=== PATIENT | female | born 1955 | race Asian ===

== ENCOUNTER → 2020-09-20 10:51 | Outpatient (CLI) | payer MEDICARE, BC, OTHER, SELFPAY ==
--- NOTE | 2020-09-20 | DI.MRI.S_ITS ---
PROCEDURE: MR KNEE RT WO CON INDICATIONS: Pain in right knee TECHNIQUE: Noncontrast sagittal PD fast spin echo and T2 fast spin echo with fat saturation, sagittal 3-D FLASH with fat saturation; coronal T1 spin echo and PD fast spin echo with fat saturation, and axial PD fast spin echo with fat saturation through the knee. COMPARISON: [facility], CR, XR KNEE 4+ VIEWS RIGHT, 09/12/2020, 8:46. FINDINGS: Image quality: Excellent. Menisci: Medial extrusion of the medial meniscus is present, which demonstrates linear and amorphous high signal intensity within its body, demonstrating superior and inferior articular surface extension, indicating complex tearing. Moderately displaced tear of the posterior horn medial meniscus at the meniscal root ligament insertion site. Lateral meniscus is intact. Cruciate ligaments: The anterior and posterior cruciate ligaments appear intact. Medial structures: The medial collateral ligament appears intact. Visualized portions of the pes anserinus tendons appear normal. No abnormal bursal fluid. Lateral structures: The lateral collateral ligament demonstrates mild T2 signal elevation at the femoral origin. The long and short heads of the biceps femoris tendon appear intact. The popliteus tendon appears normal. Iliotibial band appears normal. Anterior structures: The quadriceps and patellar tendons appear intact. Mild lateral patellar subluxation. No femoral trochlear dysplasia or ventral trochlear prominence. Mild edema in the superolateral aspect of the infrapatellar fat pad. Bones and cartilage: No bone marrow contusions or fractures. There is moderate subchondral degenerative marrow edema within the medial and lateral patellar facets as well as the patellar apex. Mild subchondral degenerative marrow edema within the weight-bearing aspects of the medial tibial plateau. Within the central aspect of the distal femur, there is a well-circumscribed focus of mixed high and low T2 signal intensity measuring roughly 17 mm diameter, consistent with a low-grade cartilaginous lesion such as an enchondroma or low grade chondrosarcoma. There is moderate tricompartmental periarticular osteophyte formation. Severe articular cartilage loss diffusely overlies the weight-bearing aspects of the medial femoral condyle and medial tibial plateau. Mild articular cartilage loss diffusely overlies the weight-bearing aspects of the lateral femoral condyle and lateral tibial plateau. There is moderate diffuse articular cartilage loss overlying the medial patellar facet and patellar apex with superimposed regions of high-grade articular cartilage loss overlying the lateral patellar apex and medial facet. Joint space: There is a moderate knee joint effusion and a moderate Dubon's cyst. Normal appearing synovial plicae are incidentally noted. IMPRESSION: 1. Tricompartmental osteoarthritis with associated articular cartilage loss. 2. Knee joint effusion and Dubon's cyst. 3. Medial meniscal tearing. 4. Findings consistent with lateral patellofemoral friction syndrome in the appropriate clinical setting. 5. Low-grade cartilaginous lesion within the distal femur as described above. Dictated by: Wayne Dodd M.D. on 09/20/2020 at 12:46 Approved by: Wayne Dodd M.D. on 09/20/2020 at 12:50
== END ==
PROVIDERS: PCP Family Medicine; Referring Provider Orthopaedic Surgery; Visit Provider Orthopaedic Surgery
DX: M17.11 Unilateral primary osteoarthritis, right knee (principal); M25.461 Effusion, right knee; S83.241A Other tear of medial meniscus, current injury, right knee, initial encounter
CPT/HCPCS: 73721

== ENCOUNTER → 2022-06-17 11:21 | Outpatient (CLI) | payer MEDICARE, BC, OTHER, SELFPAY ==
--- NOTE | 2022-06-17 | DI.MRI.S_ITS ---
PROCEDURE: MR KNEE LT WO CON INDICATIONS: Other tear of medial meniscus, current injury, left knee, in TECHNIQUE: Noncontrast sagittal PD fast spin echo and T2 fast spin echo with fat saturation, sagittal 3-D FLASH with fat saturation; coronal T1 spin echo and PD fast spin echo with fat saturation, and axial PD fast spin echo with fat saturation through the knee. COMPARISON: CR, KNEE SERIES LT, 04/30/2015, 8:22. [facility], MR, KNEE WITHOUT CONTRAST, 05/10/2015, 8:28. FINDINGS: Image quality: Excellent. Menisci: There is medial and lateral meniscal extrusion. There is complex tear of the body and posterior horn of the medial meniscus. The medial meniscus appears truncated. There is tear of the free edge of the body of the lateral meniscus. The meniscal root ligaments appear intact. Cruciate ligaments: The anterior and posterior cruciate ligaments appear intact. Mild mucoid degeneration of ACL. Medial structures: The medial collateral ligament appears intact. The semimembranosus tendon insertions and meniscocapsular junction appear intact. Visualized portions of the pes anserinus tendons appear normal. No abnormal bursal fluid. Lateral structures: The lateral collateral ligament, long and short heads of the biceps femoris tendon appear intact. The popliteus tendon appears normal. Iliotibial band appears normal. Anterior structures: The quadriceps and patellar tendons appear intact. Patellar alignment is normal. No femoral trochlear dysplasia or ventral trochlear prominence. No edema in the infrapatellar fat pad. Bones and cartilage: No bone marrow contusions or fractures. There is tricompartmental cartilage thinning and fibrillation, most pronounced in the medial femorotibial compartment with near full-thickness cartilage fissures in the medial femoral condyle and medial tibial plateau. There is bone marrow edema in the medial tibial plateau, probably reactive or secondary to mild bone contusion. Joint space: There is small knee joint effusion. Tiny Dubon's cyst. Normal appearing synovial plicae are incidentally noted. There is a 5 mm intra-articular body in the posterior intercondylar notch (series 7, image 17; series 10, image 27). IMPRESSION: 1. Complex tear of the body and posterior horn of the medial meniscus. 2. Tear of the free edge of the body of the lateral meniscus. 3. Tricompartmental cartilage thinning and fibrillation, most pronounced in the medial femorotibial compartment. 4. Small knee joint effusion. 5. A 5 mm intra-articular body in the posterior intercondylar notch. Dictated by: Naheed Hu M.D. on 06/17/2022 at 19:39 Approved by: Naheed Hu M.D. on 06/18/2022 at 10:39
== END ==
PROVIDERS: PCP Family Medicine; Referring Provider Orthopaedic Surgery; Visit Provider Orthopaedic Surgery
DX: S83.232A Complex tear of medial meniscus, current injury, left knee, initial encounter (principal); S83.282A Other tear of lateral meniscus, current injury, left knee, initial encounter; M25.462 Effusion, left knee; X58.XXXA Exposure to other specified factors, initial encounter
CPT/HCPCS: 73721

== ENCOUNTER → 2023-04-22 10:49 | Outpatient (CLI) | payer MEDICARE, BC, OTHER, SELFPAY ==
[2023-04-22 12:41] LABS: Add Manual Diff / Slide Review NO; Basophils Absolute Auto 0 /uL (0-100); Basophils Percent Auto 0.6 % (0-2); Eosinophils Absolute Auto 100 /uL (0-450); Eosinophils Percent Auto 2.3 % (2-4); Hemoglobin 12.3 g/dL (12.0-16.0); Lymphocytes Absolute Auto 1500 /uL (1100-4500); Lymphocytes Percent Auto 23.8 % (25-40); Mean Corpuscular HGB Conc 34.1 % (30-36); Mean Corpuscular Hemoglobin 32.1 PG (26-34); Mean Corpuscular Volume 94.1 fL (80-100); Monocytes Absolute Auto 400 /uL (0-900); Monocytes Percent Auto 5.7 % (3-14); Neutrophils Absolute Auto 4300 /uL (1500-7000); Neutrophils Percent Auto 67.6 % (50-75); Platelet Count 317 X10^3/uL (150-400); Red Blood Cell Count 3.83 X10^6/uL (4.0-5.2); Red Cell Distribution Width 12.8 % (11.6-14.8); White Blood Cell Count 6.4 X10^3/uL (4.5-11.0)
[2023-04-22 12:56] LABS: BUN Creatinine Ratio 11.6 (6-22); Blood Urea Nitrogen 13 mg/dL (7-17); Calcium 8.9 mg/dL (8.4-10.2); Carbon Dioxide 25 mmol/L (22-32); Chloride 103 mmol/L (98-107); Estimated Glomerular Filt Rate 54 mL/min (>60); Glucose 89 mg/dL (80-110); HEMOLYSIS < 15 (0-50); Potassium 4.3 mmol/L (3.4-5.1); Sodium 135 mmol/L (137-145)
== END ==
PROVIDERS: PCP Family Medicine; Referring Provider Orthopaedic Surgery; Visit Provider Orthopaedic Surgery
DX: Z01.818 Encounter for other preprocedural examination (principal); Z01.812 Encounter for preprocedural laboratory examination
CPT/HCPCS: 36415; 80048; 85025; 93005

== ENCOUNTER 2024-06-18 11:32 | Emergency (ER) | payer MEDICARE, BC, OTHER, SELFPAY ==
[2024-06-18] VITALS (7 sets, daily range): BP systolic 141–162; BP diastolic 70–83; PULSE 58–67; RESP 16–18; TEMP 36.9; O2SAT 94–99; BMI 26.6
--- NOTE | 2024-06-18 12:20 | ED.EYEPROB ---
HPI - Eye Problem General Chief complaint: Eye Problems Stated complaint: possible torn retina? left eye Time Seen by Provider: 06/18/24 12:20 Source: patient Mode of arrival: Ambulatory History of Present Illness HPI Narrative: Patient is a 69-year-old female with a history of torn retina to the left eye, presents to the emergency department for possible torn retina. She states that she was told by her eye doctor in the past that if she ever noticed floaters and a bright light to be evaluated immediately in an emergency department. Patient stating that she currently is not having any visual loss or visual disturbances no extraocular pain to I motion, no trauma no falls, she denies any visual loss at this time, does have a history of Lasix approximately 20 years ago, states that she does use glasses at baseline, Related Data Allergies Allergy/AdvReac Type Severity Reaction Status Date / Time [place] Allergy Swelling Verified 06/18/24 11:50 of Lip/Tongue/Throat [place] Allergy Swelling Uncoded 06/18/24 11:50 of Lip/Tongue/Throat Patient History Social History Smoking Status: Former smoker Smoking Status: Former smoker alcohol intake frequency: 0-2 drinks per day Alcohol type: wine Substance Use Type: does not use Exam Initial Vital Signs Initial Vital Signs: Vital Signs Temperature 98.4 F 06/18/24 11:44 Pulse Rate 61 06/18/24 11:44 Respiratory Rate 18 06/18/24 11:44 Blood Pressure 162/80 H 06/18/24 11:44 Pulse Oximetry 99 06/18/24 11:44 Oxygen Delivery Method Room Air 06/18/24 11:44 Course Vital Signs Vital signs: Vital Signs - 8 hr 06/18/24 11:44 06/18/24 11:51 06/18/24 11:52 Temperature 98.4 F Pulse Rate 61 67 Respiratory Rate 18 Blood Pressure 162/80 H 161/74 H Pulse Oximetry 99 96 Oxygen Delivery Method Room Air 06/18/24 11:52 06/18/24 12:00 06/18/24 12:00 Temperature Pulse Rate 67 60 Respiratory Rate Blood Pressure 141/70 H Pulse Oximetry 94 97 Oxygen Delivery Method MDM - Eye Problem Differential Diagnosis Differential diagnosis: Likely other ( Retinal detachment, vitreous hemorrhage) MDM Narrative Medical decision making narrative: patient is a 69-year-old female with a history of retinal tear presenting for possible retinal tear. States that in the past she had a retinal tear repair, was told that if she ever had some floaters that she should be evaluated immediately by a doctor. She states that she did try calling her eye doctor but they were closed since it was the weekend therefore decided come into the ED for further evaluation treatment. She states that 2 hours ago she noticed some floaters denies any actual loss of vision does use glasses at baseline visual acuity. Formed here in the emergency department, without glasses 20/70 in the left eye, right eye uncorrected 20/70. patient did have bedside ultrasound performed by me here to evaluate for retinal detachment there was no evidence of this or any other evidence of vitreous hemorrhage, patient with extraocular eye motions intact no pain with this, patient's vision is at baseline, patient was given strict return precautions she verbalized understanding of this and agrees with being discharged home with outpatient follow up with PCP and Ophthalmology. 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 Disease processes change and evolve, if your symptoms worsen or if you develop any new symptoms that are concerning to you please return for evaluation. Your evaluation today does not show any evidence of any life-threatening/serious illnesses requiring admission to the hospital or surgery. Please follow-up with your doctor for re-evaluation in approximately 1 day. Seek immediate medical attention for any worrisome symptoms. Referrals: Doug Ansari MD [Primary Care Provider] - Stand Alone Forms: Patient Portal/API/Survey
== END 2024-06-18 13:06 | disposition home or self-care (01) ==
PROVIDERS: Emergency Provider Student in an Organized Health Care Education/Training Program; PCP Family Medicine
DX: H43.392 Other vitreous opacities, left eye (principal)
CPT/HCPCS: 99281

== ENCOUNTER → 2024-09-07 16:05 | Outpatient (CLI) | payer MEDICARE, BC, OTHER, SELFPAY ==
--- NOTE | 2024-09-07 16:06 | DI.MRI.S_ITS ---
PROCEDURE: MR KNEE RT WO CON INDICATIONS: presence of rt artificial knee joint,loose body TECHNIQUE: Noncontrast sagittal PD fast spin echo and STIR, sagittal 3-D FLASH with fat saturation; coronal T1 spin echo and STIR, and axial STIR through the knee. COMPARISON: [facility], MR, MR KNEE RT WO CON, 09/20/2020, 11:13. [facility], CR, XR KNEE 4+ VIEWS RIGHT, 09/02/2024, 9:04. FINDINGS: Image quality: Metal artifact is seen related to the unicompartmental arthroplasty including areas of signal void, signal pile-up, and geometric distortion despite the use of metal artifact reduction techniques. Diagnostic information is obtained. Anterior cruciate ligament: Intact. Posterior cruciate ligament: Intact. Medial collateral ligament: Intact. Lateral collateral ligament: Intact. Medial meniscus: Obscured. Lateral meniscus: Intact. Medial and lateral tendons: The semimembranosus tendon insertions appear intact. Visualized portions of the pes anserinus tendons appear normal. The popliteus tendon is intact. Iliotibial band appears normal. Anterior structures: The quadriceps and patellar tendons appear intact. No patellar subluxation. No femoral trochlear dysplasia or ventral trochlear prominence. No edema in the infrapatellar fat pad. Bones: Postsurgical changes from medial unicompartmental arthroplasty with associated metal artifact. No acute trabecular bone injury. Stable enchondroma in the central portion of the distal femur. Lateral femorotibial cartilage: Mild surface cartilage irregularity and small marginal osteophytes. Patellofemoral cartilage: Intact high-grade versus full-thickness cartilage loss in the patellofemoral compartment with subchondral cystic changes, progressed when compared to the MRI from 09/20/2020. Soft tissues: Small joint effusion. Intra-articular loose body at the posterior intercondylar notch measures up to 12 x 6 x 12 mm. Small medial popliteal cyst. Fluid and a 4 mm loose body are seen tracking along the popliteus tendon sheath IMPRESSION: 1. 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 2. 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 Mild grade 2 chondromalacia in the lateral femorotibial compartment. 3. Cruciate and collateral ligaments are intact. No lateral meniscal tear. No acute trabecular bone injury. 4. Small joint effusion. A 12 mm intra-articular loose body is seen in the posterior condylar notch and there is a 4 mm loose body within fluid tracking inferiorly along the popliteus tendon sheath. Approved by: Talat Ivan M.D. on 09/08/2024 at 10:42
== END ==
LOC: MRI 16:06
PROVIDERS: PCP Family Medicine; Referring Provider Orthopaedic Surgery; Visit Provider Orthopaedic Surgery
DX: M22.41 Chondromalacia patellae, right knee (principal); M71.21 Synovial cyst of popliteal space [Baker], right knee; M25.461 Effusion, right knee; Z96.651 Presence of right artificial knee joint
CPT/HCPCS: 73721